=== PATIENT | male | born 1960 | race Caucasian/White ===

== ENCOUNTER 2025-02-18 11:03 | Day surgery (SDC) | payer OTHER, SELFPAY ==
[2025-02-18 13:19] VITALS: BMI 37.4
[2025-02-18 13:20] VITALS: BMI 37.4
[2025-02-18 13:21] VITALS: BP 161/87
[2025-02-18] MEDS: NORMOSOL-R/PLASMALYTE-A 1000 IV (13:41)
[2025-02-18 13:51] LABS: Hematocrit 44.4 % (39.0-52.0); Hemoglobin 15.4 g/dL (13.0-18.0); Mean Corp Hgb Conc. 34.7 g/dL (33.0-37.0); Mean Corpuscular Volume 87.2 fL (80.0-94.0); Platelet Count 210 10^3/uL (130-400); Red Cell Dist. Width 13.2 % (11.5-14.5)
[2025-02-18 15:05] LABS: ALT (SGPT) 37 U/L (0-50); AST (SGOT) 27 U/L (17-59); Albumin 4.5 g/dl (3.5-5.0); Alkaline Phosphatase 104 U/L (38-126); Blood Urea Nitrogen 14 mg/dl (9-20); Calcium 9.6 mg/dl (8.4-10.2); Carbon Dioxide 27 mmol/L (22-30); Chloride 106 mmol/L (98-107); Estimated Creatinine Clearance 125 ml/min; Glucose 98 mg/dl (70-99); Potassium 4.2 mmol/L (3.5-5.1); Sodium 137 mmol/L (135-145); Total Protein 7.5 g/dl (6.3-8.2); eGFR > 60.00
[2025-02-18 15:46] VITALS: BP 124/79; BP 161/87
[2025-02-18 16:00] VITALS: BP 118/74
[2025-02-18] MEDS: DETROL LA 4 MG PO (16:09)
[2025-02-18 16:12] VITALS: BP 115/73
[2025-02-18 16:25] VITALS: BP 124/73
[2025-02-18 16:40] VITALS: BP 144/96
[2025-02-24 11:29] LABS: Stone Analysis Mass 511 mg
== END 2025-02-18 16:42 | disposition home or self-care (01) ==
LOC: SDS 11:03
PROVIDERS: ATTENDING PHYSICIAN Surgery
DX: N21.1 Calculus in urethra (principal); N32.0 Bladder-neck obstruction; N21.0 Calculus in bladder; N40.0 Benign prostatic hyperplasia without lower urinary tract symptoms
CPT/HCPCS: 52318; 80053; 82365; 85027; 93005